=== PATIENT | male | born 1945 | race Caucasian/White ===

== ENCOUNTER 2017-08-25 15:45 | Outpatient (RCR) | payer MEDICARE, OTHER ==
[~2017-08-25 15:45] MED LIST: ALTACE 2.5MG T2.5 MG PO; LIP PO; PRIL40 PO; TRICOR145 MG PO; TRICOR48 MG PO; VOLTAREN-XR100 MG PO; [UNRECOGNIZED DRUG - CODE]; [UNRECOGNIZED DRUG - OTHER] PO
== END 2017-11-10 | disposition home or self-care (01) ==
LOC: MKS.ESL.OT
DX: M65.842 Other synovitis and tenosynovitis, left hand (principal); M19.032 Primary osteoarthritis, left wrist
CPT/HCPCS: G8984-GO; G8985-GO

== ENCOUNTER → 2021-08-07 | Outpatient (CLI) | payer MEDICARE | LOC: MHCPAIN 09:48 | DX: M47.816 Spondylosis without myelopathy or radiculopathy, lumbar region (principal); M53.3 Sacrococcygeal disorders, not elsewhere classified; M54.16 Radiculopathy, lumbar region | CPT/HCPCS: G0463 ==

== ENCOUNTER → 2021-08-21 | Outpatient (CLI) | payer MEDICARE | LOC: MHCPAIN 12:26 | DX: M47.817 Spondylosis without myelopathy or radiculopathy, lumbosacral region (principal); M53.3 Sacrococcygeal disorders, not elsewhere classified; M54.16 Radiculopathy, lumbar region | CPT/HCPCS: J1100; Q9967 ==

== ENCOUNTER → 2022-01-03 | Outpatient (CLI) | payer MEDICARE | LOC: MHCPAIN 10:44 | DX: M47.817 Spondylosis without myelopathy or radiculopathy, lumbosacral region (principal); M54.16 Radiculopathy, lumbar region; M54.50 Low back pain, unspecified | CPT/HCPCS: G0463; J1100; Q9967 ==

== ENCOUNTER → 2022-01-16 | Outpatient (CLI) | payer MEDICARE | LOC: MHCPAIN 12:41 | DX: M47.896 Other spondylosis, lumbar region (principal); M54.16 Radiculopathy, lumbar region; G89.29 Other chronic pain | CPT/HCPCS: G0463 ==

== ENCOUNTER 2024-05-15 01:33 | Emergency (ER) | payer MEDICARE ==
[~2024-05-15] VITALS: Ht 170.2 cm; Wt 86.4 kg
[2024-05-15 01:45] VITALS: TEMP 97.1
[2024-05-15 02:15] LABS: HEMATOCRIT 40.5 % (42.0-52.0); HEMOGLOBIN 12.9 g/dl (13.5-18.0); MEAN CELL VOLUME 100 fl (80.0-100.0); MEAN CORPUSCULAR HEMOGLOBIN 32 pg (27-31); MEAN CORPUSCULAR HGB CONC 32 g/dl (33.0-37.0); MEAN PLATELET VOLUME 10.2 fl (7.4-10.4); PLATELET COUNT 205 K/mm3 (130-400); RED BLOOD COUNT 4.04 M/mm3 (4.20-5.60)
[2024-05-15] MEDS ORDERED: NS 1,000 ML IV ONE (02:15)
[2024-05-15 02:29] LABS: ALANINE AMINOTRANSFERASE 30 U/L (0-55); ALKALINE PHOSPHATASE 45 U/L (40-150); ANION GAP 14 mmol/L (7-16); AST,SGOT 34 U/L (5-34); BILIRUBIN,TOTAL 0.6 mg/dL (0.2-1.2); BLOOD UREA NITROGEN 26 mg/dL (8-26); CALCIUM 9.7 mg/dL (8.4-10.2); CHLORIDE 106 mEq/L (98-107); CREATININE, serum 1.29 mg/dL (0.72-1.25); GLUCOSE 114 mg/dL (70-99); SODIUM 141 mEq/L (136-145); TOTAL PROTEIN 7.4 g/dl (6.2-8.1)
[2024-05-15 02:57] LABS: TROPONIN-I < 0.010 ng/mL (0.00-0.033)
[2024-05-15] MEDS ORDERED: Ondansetron 4 MG/2 ML VIAL IV ONE (03:00)
[2024-05-15] MEDS ORDERED: Meclizine 25 MG TAB PO ONE (03:15)
[2024-05-15 03:54] LABS: ANISOCYTOSIS 1+; BAND 2 % (0-10); EOSINOPHIL 1 % (0-4); LYMPHOCYTE 68 % (20.0-51.0); NEUTROPHILS 25 % (42.0-75.2); PLATELET ESTIMATE NORMAL (NORMAL)
[2024-05-15] MEDS ORDERED: diphenhydrAMINE 50 MG/ML 1 ML VIAL IV ONE (04:00)
[2024-05-15] MEDS ORDERED: Iohexol 350 - 100 ML VIAL IV ONE (04:26)
[2024-05-15] MEDS ORDERED: NS 64 ML IV SCH (04:26)
[2024-05-15] MEDS ORDERED: ANTIVERT 25MG25 MG PO (05:09)
[2024-05-15 05:12] VITALS: BP 144/91; PULSE 59
[2024-05-16] MEDS ORDERED: ANTIVERT 25MG25 MG PO (11:15)
== END 2024-05-15 05:15 | disposition home or self-care (01) ==
LOC: COL.ER 01:33
PROVIDERS: Emergency Medicine
DX: U07.1 COVID-19 (principal); R42 Dizziness and giddiness; E86.0 Dehydration; R09.81 Nasal congestion
CPT/HCPCS: J1200; J2405; J7030; Q9967